=== PATIENT | male | born 1985 | race Hispanic/Latino ===

== ENCOUNTER 2018-02-12 17:25 | Emergency (ER) | payer SELFPAY ==
[2018-02-12] MEDS ORDERED: TETANUS/DIPHTHERIA TOXOID [ADULT] 0.5 ML VIAL IM ONE (17:45)
== END 2018-02-12 18:26 | disposition home or self-care (01) ==
LOC: EDH 17:25
DX: S01.01XA Laceration without foreign body of scalp, initial encounter (principal); W51.XXXA Accidental striking against or bumped into by another person, initial encounter; Y93.89 Activity, other specified; Y92.89 Other specified places as the place of occurrence of the external cause; Y99.8 Other external cause status
CPT/HCPCS: 12032; 90471; 90714